=== PATIENT | male | born 1975 | race Caucasian/White ===

== ENCOUNTER 2022-06-17 13:31 | Emergency (ER) | payer SELFPAY ==
[2022-06-17] MEDS ORDERED: HYDROcodone/Acetaminophen 5/325 mg Tablet ONE (15:10)
[2022-06-17] MEDS ORDERED: Ondansetron ODT 4 MG TAB ONE (16:17)
== END 2022-06-17 16:30 | disposition home or self-care (01) ==
LOC: CSHERS 13:31
DX: S63.282A Dislocation of proximal interphalangeal joint of right middle finger, initial encounter (principal); F17.210 Nicotine dependence, cigarettes, uncomplicated; W27.8XXA Contact with other nonpowered hand tool, initial encounter
CPT/HCPCS: 26770; Q0162

== ENCOUNTER 2022-12-28 09:23 | Emergency (ER) | payer SELFPAY ==
[2022-12-28] MEDS ORDERED: Ibuprofen 200 MG TAB ONE (10:11)
[2022-12-28 10:46] LABS: Bilirubin Neg (Negative); Blood, Urine Negative (Negative); Clarity Clear (Clear); Glucose, Urine (Dipstick) Normal (Negative); Ketone, Urine Negative (Negative); Leukocyte Negative (Negative); Nitrite Negative (Negative); Protein, Urine (Dipstick) Negative (Neg-Trace); Urobilinogen Normal mg/dL (Less than 2)
== END 2022-12-28 12:10 | disposition home or self-care (01) ==
LOC: CSHERS 09:23
DX: K74.60 Unspecified cirrhosis of liver (principal); F17.210 Nicotine dependence, cigarettes, uncomplicated
CPT/HCPCS: 74176; 81003